=== PATIENT | female | born 1975 | race Two or more races ===

== ENCOUNTER → 2017-04-08 11:48 | Outpatient (CLI) | payer OTHER | END | disposition home or self-care (01) | LOC: LAB 11:48 | DX: E03.8 Other specified hypothyroidism (principal); R53.82 Chronic fatigue, unspecified; E27.40 Unspecified adrenocortical insufficiency ==

== ENCOUNTER 2019-10-13 14:21 | Outpatient (CLI) | payer OTHER ==
[2019-10-16] MEDS ORDERED: NATURE-THRO113.75 MG PO (11:01)
== END 2019-10-13 14:30 | disposition home or self-care (01) ==
LOC: RAD 14:21
PROVIDERS: ATTEND Obstetrics & Gynecology Gynecology
DX: I10 Essential (primary) hypertension (principal)

== ENCOUNTER 2019-10-14 14:09 | Outpatient (CLI) | payer OTHER ==
[2019-10-16] MEDS ORDERED: NATURE-THRO113.75 MG PO (11:01)
== END 2019-10-14 14:27 | disposition home or self-care (01) ==
LOC: MAMO-SONO 14:09
PROVIDERS: ATTEND Obstetrics & Gynecology
DX: Z12.31 Encounter for screening mammogram for malignant neoplasm of breast (principal); N63.10 Unspecified lump in the right breast, unspecified quadrant; N63.20 Unspecified lump in the left breast, unspecified quadrant

== ENCOUNTER 2019-10-20 05:45 | Day surgery (SDC) | payer OTHER ==
[~2019-10-20 05:45] MED LIST: NATURE-THRO113.75 MG PO
[2019-10-20] MEDS ORDERED: IBU600 MG PO (08:56)
== END 2019-10-20 16:00 | disposition home or self-care (01) ==
LOC: CIR.AMB 05:45
PROVIDERS: ATTEND Obstetrics & Gynecology Gynecology
DX: D25.0 Submucous leiomyoma of uterus (principal)

== ENCOUNTER 2021-03-15 10:18 | Outpatient (CLI) | payer OTHER ==
[~2021-03-15 10:18] MED LIST changes: +IBU600 MG PO
== END 2021-03-15 10:25 | disposition home or self-care (01) ==
LOC: MAMO-SONO 10:18
PROVIDERS: ATTEND Obstetrics & Gynecology
DX: N60.11 Diffuse cystic mastopathy of right breast (principal); N60.12 Diffuse cystic mastopathy of left breast; Z12.31 Encounter for screening mammogram for malignant neoplasm of breast